=== PATIENT | male | born 2000 | race Caucasian/White ===

== ENCOUNTER → 2023-07-23 | Outpatient (CLI) | payer OTHER, SELFPAY ==
--- NOTE | 2023-07-23 07:54 | RAD_ITS ---
STUDY: X-RAY - ESOPHAGUS (BARIUM SWALLOW) WITH FLUOROSCOPY REASON FOR EXAM: Male, 22 years old. DYSPHAGIA TECHNIQUE: 23 view(s) of the esophagus were obtained following swallowing of barium. FLUOROSCOPY TIME (if supplied): (58 seconds) minutes/seconds. 17.43 mGy COMPARISON: None. FINDINGS: There is no demonstrated esophageal foreign body. There is no demonstrated stricture or mucosal abnormality. Normal gastroesophageal junction, without a demonstrated hiatal hernia. The patient was unable to swallow a 12 mm tablet of barium. Normal visualized aortic arch and descending thoracic aorta. Normal visualized pulmonary parenchyma. Normal visualized osseous structures of the thorax. RAD/Esophagus Dual Contrast IMPRESSION: Normal plain film x-ray examination (barium swallow) of the esophagus. The patient was not able to swallow the 12 mm tablet of barium. Electronically Signed: Salvador Cho MD at 9:05 EST ,
--- OUTSIDE RECORDS SUMMARY | 2023-07-23 08:10 | XMS RPT_ITS | CCD ---
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 Note Date & Type Note Facility Evaluation + Plan note Future Appointments Appointment Date:07/08/2022 09:40:00 AM Scheduled Provider:RONNIE MARCELO APRN, CNP Location:[facility] Appointment Type:PC OV [facility] Evaluation + Plan note Note Date & Type Note Facility Evaluation + Plan note Future Appointments Appointment Date:08/05/2022 11:00:00 AM Scheduled Provider:KODY HALE Location:[facility] Appointment Type:CV SCHEDULING MANAGER [facility] Hospital course Narrative Note Date & Type Note Facility Hospital course Narrative No data available for this section [facility] Hospital Discharge instructions Note Date & Type Note Facility Hospital Discharge instructions No data available for this section [facility] Note Note Date & Type Note Facility Note CHELSEA OLEARY MD: SIGN, VERIFY, SIGN, MODIFY Event Display: Echocardiogram Complete w/Strain ([facility]) Authored Date: [id number] [facility] Progress note Note Date & Type Note Facility Progress note No data available for this section [facility] Summary Purpose Family History No Family History Records Found Advance Directives No Advanced Directives Records Found Additional Source Comments Care Team (unrecognized sect ion and content) Care Team Personnel Name: RONNIE MARCELO APRN, CNP Position: P4 Advanced Practice Nurse Member Role: Primary Care Physician Address: Address: [address] [place] [address] Care Team Related Persons Name: HOLLIS KOHLER Address: Home [address] [place], [place] [id number] Address: [address] [phone] Name: ELIF KOHLER Care Team Personnel Name: RONNIE MARCELO APRN, CNP Position: P4 Advanced Practice Nurse Member Role: Primary Care Physician Address: Address: [address] [place] [address]- Care Team Related Persons Name: HOLLIS KOHLER Address: Home [address] [place], [place] [id number] [place] Address: Temporary [address], [place] [phone] Name: HOLLIS KOHLER Address: Home [address] [place], [place] [id number] [place] Address: Temporary [address], [place] [id number] Name: KOHLER, TRACY Name: ELIF KOHLER L Address: Home [address] [place], [place] [id number] [place] Address: Temporary [address] [place], [place] [phone] Patient Care team informatio n (unrecognized section and content) Care Team Personnel Name: RONNIE MARCELO APRN - SPIRAL TUBE WINDER HELPER Position: P4 Advanced Diesel Mechanic Member Role: Primary Care Physician Address: Address: [address] [place] [address]- Care Team Related Persons Name: HOLLIS KOHLER Address: Home [address] [place], [place] [id number] [place] Address: Temporary [address], [place] [phone] Name: HOLLIS KOHLER Address: Home [address], [place] [phone] [place] Address: Temporary [address], [place] [phone] Name: ELIF KOHLER Name: ELIF KOHLER L Address: Home [address] [place] [phone] [place] Address: Temporary [address], [place] [phone] Care Team Personnel Name: RONNIE MARCELO COVER CREASER - SPIRAL TUBE WINDER HELPER Position: P4 Advanced Diesel Mechanic Member Role: Primary Care Physician Address: Address: [address] [place] [address]- Name: SHAHEED DE LEON MD Position: ED Physician Member Role: Attending Physician Address: Address: [facility] [address] [place] [address] [place] Name: Karuna Chowdary RN Position: ED Charge Member Role: ED RN Care Team Related Persons Name: HOLLIS KOHLER Address: Home [address] [place] [phone] [place] Address: [address] [phone] Name: ELIF KOHLER Name: ELIF KOHLER L Address: [place] [address] [place] [phone] [place] Address: Temporary [address] [place] [phone] Care Team Personnel Name: RONNIE MARCELO APRN - SPIRAL TUBE WINDER HELPER Position: Advanced Diesel Mechanic Member Role: Primary Care Physician Address: Address: [address] [place] [address] [place] Care Team Related Persons Name: HOLLIS KOHLER Address: Home [address] [place] [phone] [place] Address: Temporary [address] [place] [phone] Name: HOLLIS KOHLER Address: Home [id number] [place] [phone] [place] Address: Temporary [address] [place] [phone] Name: ELIF KOHLER Name: ELIF KOHLER Address: Home [id number] [place] [phone] [place] Address: Temporary [address] [place] [phone] (unrecognized sect ion and content) No Status Records Found INFORMATION SOURCE (unrecogn ized section and content) FOR RECORDS PERTAINING TO PATIENTS WHO ARE OR HAVE BEEN ENROLLED IN A CHEMICAL DEPENDENCY/SUBSTANCEABUSE PROGRAM, SOME INFORMATION MAY BE OMITTED. This clinical summary was aggregated from multiple sources. Caution should be exercised in using it in the provision of clinical care. This summary normalizes information from multiple sources, and as a consequence, information in this document may materially change the coding, format and clinical context of patient data. In addition, data may be omitted in some cases. CLINICAL DECISIONS SHOULD BE BASED ON THE PRIMARY CLINICAL RECORDS. [facility] [employer] [facility]. provides no warranty or guarantee of the accuracy or completeness of information in this document.
== END | disposition home or self-care (01) ==
PROVIDERS: PCP Nurse Practitioner Family; Referring Provider Internal Medicine Gastroenterology; Visit Provider Internal Medicine Gastroenterology
DX: R13.10 Dysphagia, unspecified (principal)
CPT/HCPCS: 74221